=== PATIENT | female | born 1995 | race Hispanic/Latino ===

== ENCOUNTER 2020-06-05 15:13 | Observation (INO) | payer MEDICAID ==
[~2020-06-05] VITALS: Ht 157.5 cm; Wt 83.0 kg
[2020-06-05] MEDS ORDERED: AMPICILLIN 2GM+NS 100ML 100 ML IV SCH (16:30)
[2020-06-05] MEDS ORDERED: AMPICILLIN 1GM+NS 50ML 50 ML IV SCH (16:30)
[2020-06-05] MEDS: LACTATED RINGERS 1000ML 1,000 ML IV SCH ×2 (16:45→17:40)
[2020-06-05] MEDS: TERBUTALINE SULFATE VIAL 1MG/ML SQ PRN ×2 (16:46→17:40)
[2020-07-04] MEDS ORDERED: PREN-154 PO (15:56)
== END 2020-06-05 19:45 | disposition home or self-care (01) ==
LOC: EDH 15:13 → LDH 15:14
PROVIDERS: ADMIT Obstetrics & Gynecology; ATTEND Obstetrics & Gynecology
DX: O62.9 Abnormality of forces of labor, unspecified (principal); O46.93 Antepartum hemorrhage, unspecified, third trimester; Z3A.35 35 weeks gestation of pregnancy
CPT/HCPCS: 59025; 96360; 96361; 96372; 99284; G0378 ×3; J3105; J7120 ×2